=== PATIENT | female | born 1990 | race Caucasian/White ===

== ENCOUNTER 2017-03-08 11:48 | Observation (INO) | payer BC, OTHER ==
[2017-03-08 11:55] VITALS: BMI 27.1
--- NOTE | 2017-03-08 12:01 | PDOC ---
Attending Attestation - Resident Resident Name: TylerMary - HPI HPI: 03/12/17 00:13 Pt presents to the ED complaining of syncope. Patient has a history of multiple UTIs and incompletely self treated with antibiotics that she had at home. Seen in urgent care today who advised her to come to the ED because they found her to have a UTI and a WBC Count of 18. - Physicial Exam PE: 03/12/17 00:34 Agree with resident's exam. Patient is well appearing and in no acute distress. - Medical Decision Making 03/12/17 00:37 Pt presents to the ED with syncope and apparent UTI. Concern for possible emerging sepsis. Will give IV hydration, check labs, treat with IV antibiotics and admit to medicine for possible emerging sepsis.
--- NOTE | 2017-03-08 12:01 | PDOC ---
History of Present Illness - General Chief Complaint: Urinary Problem Stated Complaint: URINARY PROBLEM Time Seen by Provider: 03/08/17 12:00 History Source: Patient - History of Present Illness Initial Comments: 03/08/17 12:18 CC: "Urgent Care said I should be worried about sepsis." Patient is a 26 y.o. female with a PMH of ileal resection (2/2 to SB abscess) who presents today c/o a syncopal episode yesterday evening as well possible UTI. Patient notes she woke up @ 4 a.m. to get a glass of water and syncopized. Her last memory is walking down the hallway to get a glass of water and then waking up on her kitchen floor. Patient is uncertain if she hit her head, but does c/ o of intermittent blurry vision. Patient denies any vomiting, confusion or pre- syncopal diaphoresis, chest pain or shortness of breath. Patient further notes a h/o repeated UTI's for which she often self-medicates with unfinished antibiotic regimens. Most recently she had a UTI 10 days previous for which she took 3 doses of Macrobid. Patient notes she did feel some urgency last night so she took one Macrobid (dose unknown). Patient denies any dysuria or hematuria but notes subjective fever. Patient was evaluated at Urgent Care this morning and provides paperwork that shows a CBC significant for leukocytosis (18), and a urinalysis showing 1+ blood and Nitrite (+). Surgical: Ileal resection Social: (+) nicotine 5-6 cigarettes daily; (+) alcohol 4-5 drinks monthly; (-) marijuana/cocaine/heroin Allergies: Reglan; Patient notes she is opiod sensitive and has a h/o of Dilaudid dependence/withdrawal PMD: Dr. Pat Castro Past History - Past Medical History Allergies/Adverse Reactions: Allergies Allergy/AdvReac Type Severity Reaction Status Date / Time Fish Containing Products Allergy Verified 03/08/17 11:49 metoclopramide HCl Allergy Verified 03/08/17 11:49 [From Reglan] Home Medications: Ambulatory Orders NK [No Known Home Medication] 03/08/17 GI Disorders: Yes (Diverticulitis) Other medical history: Reoccurent UTI - Surgical History Abdominal Surgery: Yes (Partial ileocolonectomy) - Immunization History Immunization Up to Date: Yes - Suicide/Smoking/Psychosocial Hx Smoking History: Current every day smoker Have you smoked in the past 12 months: No Number of Cigarettes Smoked Daily: 10 Information on smoking cessation initiated: No Hx Alcohol Use: No Drug/Substance Use Hx: No Substance Use Type: None Review of Systems - Review of Systems Constitutional: Yes: Chills, Fever HEENTM: Yes: Blurred Vision Respiratory: No: Shortness of Breath, Wheezing Cardiac (ROS): Yes: Syncope. No: Chest Pain, Irregular Heart Rate, Lightheadedness, Palpitations ABD/GI: No: Constipated, Diarrhea, Nausea, Vomiting : Yes: Urgency. No: Burning, Dysuria Neurological: Yes: Headache. No: Unsteady Gait All Other Systems: Reviewed and Negative *Physical Exam - Vital Signs Last Vital Signs Temp Pulse Resp BP Pulse Ox 99.7 F H 93 H 15 126/68 96 03/08/17 11:50 03/08/17 11:50 03/08/17 11:50 03/08/17 11:50 03/08/17 11:50 - Physical Exam General Appearance: Yes: Nourished, Obese HEENT: positive: EOMI, DORENE Neck: positive: Trachea midline, Supple Respiratory/Chest: positive: Lungs Clear, Normal Breath Sounds Cardiovascular: positive: S1, S2, Tachycardia Gastrointestinal/Abdominal: positive: Soft. negative: Tender, Guarding, Rebound Musculoskeletal: negative: Normal Inspection, CVA Tenderness Integumentary: positive: Normal Color, Dry, Warm Neurologic: positive: senior software quality engineer II-XII NML intact, Fully Oriented, Alert, Motor Strength 5/5, Finger to Nose ED Treatment Course - LABORATORY CBC & Chemistry Diagram: 03/08/17 12:40 03/08/17 12:40 Medical Decision Making - Medical Decision Making 03/08/17 12:41 Patient is a 26 y.o. female who presents following syncopal episode as well labs from urgent care that show SIRS 3/4 (Temp. 99, HR 109, WBC 18) PLAN: 1. Lactate 2. CBC/CMP 3. UA, UC, Urine Culture 4. EKG 03/08/17 13:32 Dr. Castro called ED, requests blood cultures, 1 gram Ceftriaxone and admission to observation. ED labs significant for Leukocytosis (20) and patient remains febrile (99.7), patient admitted under Dr. Castro. *DC/Admit/Observation/Transfer Diagnosis at time of Disposition: Urinary tract infection - Discharge Dispostion Condition at time of disposition: Good Admit: Yes
[2017-03-08] MEDS ORDERED: SODIUM CHLORIDE 1,000 ML IV STA (12:25)
[2017-03-08 12:53] LABS: BASOPHIL 0.3 % (0-2.0); EOSINOPHIL 0.3 % (0-4.5); MCHC 33.4 g/dl (32.0-36.0); MEAN PLT VOLUME 7.4 fl (7.5-11.1); NEUTROPHILS 94.7 % (42.8-82.8); PLATELET COUNT 237 K/MM3 (134-434); RDW 12.6 % (11.6-15.6)
[2017-03-08 13:22] LABS: ALBUMIN 4.1 g/dl (3.4-5.0); ANION GAP 10 (8-16); BILIRUBIN,TOTAL 1.6 mg/dL (0.2-1.0); CALCIUM 9.2 mg/dL (8.5-10.1); CO2 24 mmol/L (21-32); CREATININE 0.6 mg/dL (0.55-1.02); GLUCOSE,RANDOM 98 mg/dL (74-106); SGPT/ALT 15 U/L (12-78)
[2017-03-08 13:23] LABS: ALK PHOS 59 U/L (45-117); TOT PROT 6.9 g/dl (6.4-8.2)
[2017-03-08 13:24] LABS: SGOT/AST 13 U/L (15-37)
[2017-03-08] MEDS ORDERED: CEFTRIAXONE 1 GM in DEXTROSE 5%-WATER - 50 ML IVPB ONE (13:35)
[2017-03-08] MEDS ORDERED: CEFTRIAXONE 50 ML ONE (13:46)
[2017-03-08 13:52] LABS: URINE APPEARANCE CLEAR; URINE BILIRUBIN NEGATIVE (NEGATIVE); URINE BLOOD 2+ (NEGATIVE); URINE COLOR STRAW; URINE GLUCOSE (UA) NEGATIVE (NEGATIVE); URINE KETONE TRACE (NEGATIVE); URINE NITRITE NEGATIVE (NEGATIVE); URINE PROTEIN NEGATIVE (NEGATIVE); URINE UROBILINOGEN NEGATIVE mg/dL (0.2-1.0)
[2017-03-08 13:55] LABS: URINE LEUK ESTERASE 3+ (NEGATIVE)
[2017-03-08 13:57] LABS: URINE BACTERIA RARE /hpf (NONE SEEN); URINE RBC 4 /hpf (0-3); URINE WBC 16 /hpf (3-5); YEAST RARE
[2017-03-08] MEDS ORDERED: ACETAMINOPHEN 325 MG TABLET (FP) PO PRN (16:01)
--- NOTE | 2017-03-08 16:09 | HP ---
Admitting History and Physical - Primary Care Physician PCP: Isi Castro - Admission Chief Complaint: malaise History of Present Illness: Has had recurrent UTI in past couple months, never completed abx courses, only couple pills here and there. Yesterday felt like she was coming down with UTI took two pills of macrobid. Woke up at night and went to the bathroom at 4.30 am passed out on the kitchen floor due to weakness?, then went back to bed. Woke up this am still feeling very weak, went to [place] [id number] and was sent to er. History Source: Patient Limitations to Obtaining History: No Limitations - Past Medical History Gastrointestinal: Yes: Other (Crohn's disease in past) Reproductive: Yes: Polycystic Ovary Syndrome - Past Surgical History Additional Past Surgical History: partial ileal colectomy for perforated bowel 2010 - Smoking History Smoking history: Current every day smoker Have you smoked in the past 12 months: No Aproximately how many cigarettes per day: 10 - Alcohol/Substance Use Hx Alcohol Use: Yes - Social History Usual Living Arrangement: Yes: Alone ADL: Independent History of Recent Travel: No Home Medications - Allergies Allergies/Adverse Reactions: Allergies Allergy/AdvReac Type Severity Reaction Status Date / Time Fish Containing Products Allergy Verified 03/08/17 11:49 metoclopramide HCl Allergy Verified 03/08/17 11:49 [From Reglan] - Home Medications Home Medications: Ambulatory Orders NK [No Known Home Medication] 03/08/17 Family Disease History - Family Disease History Family Disease History: CA: Father (seminoma), Mother (colon) Review of Systems - Review of Systems Constitutional: reports: Chills, Loss of Appetite Eyes: reports: No Symptoms HENT: reports: No Symptoms Neck: reports: No Symptoms Cardiovascular: reports: No Symptoms Respiratory: reports: Cough (dry) Gastrointestinal: reports: No Symptoms Genitourinary: reports: Dysuria, Flank Pain Musculoskeletal: reports: No Symptoms Integumentary: reports: No Symptoms Neurological: reports: No Symptoms Endocrine: reports: No Symptoms Hematology/Lymphatic: reports: No Symptoms Psychiatric: reports: No Symptoms Physical Examination Vital Signs: Vital Signs Temperature 98.4 F 03/08/17 14:09 Pulse Rate 72 03/08/17 14:09 Respiratory Rate 18 03/08/17 14:09 Blood Pressure 98/48 03/08/17 14:09 O2 Sat by Pulse Oximetry (%) 100 03/08/17 14:09 Constitutional: Yes: Well Nourished, Calm Eyes: Yes: EOM Intact HENT: Yes: Normocephalic Neck: Yes: Trachea Midline Cardiovascular: Yes: Regular Rate and Rhythm Respiratory: Yes: CTA Bilaterally Gastrointestinal: Yes: Normal Bowel Sounds, Soft. No: Tenderness, Epigastrium, Tenderness, Rebound (mild bilateral CVA tenderness) Renal/: Yes: WNL Musculoskeletal: Yes: WNL Extremities: Yes: WNL Edema: No Peripheral Pulses WNL: Yes Neurological: Yes: WNL ...Motor Strength: WNL Labs: Laboratory Results - last 24 hr 03/08/17 03/08/17 03/08/17 12:40 12:40 12:40 WBC 20.0 H RBC 4.68 Hgb 13.6 Hct 40.7 MCV 87.0 MCH 29.0 MCHC 33.4 RDW 12.6 Plt Count 237 MPV 7.4 L Neutrophils % 94.7 H Lymphocytes % 1.2 L Monocytes % 3.5 L Eosinophils % 0.3 Basophils % 0.3 Sodium 137 Potassium 4.1 Chloride 103 Carbon Dioxide 24 Anion Gap 10 BUN 8 Creatinine 0.6 Creat Clearance w eGFR > 60 Random Glucose 98 Lactic Acid 0.9 Calcium 9.2 Total Bilirubin 1.6 H AST 13 L ALT 15 Alkaline Phosphatase 59 Total Protein 6.9 Albumin 4.1 Urine Color Urine Appearance Urine pH Urine Protein Urine Glucose (UA) Urine Ketones Urine Blood Urine Nitrite Urine Bilirubin Urine Urobilinogen Urine RBC Urine WBC Ur Epithelial Cells Urine Bacteria Urine Yeast Urine HCG, Qual 03/08/17 03/08/17 13:31 13:31 WBC RBC Hgb Hct MCV MCH MCHC RDW Plt Count MPV Neutrophils % Lymphocytes % Monocytes % Eosinophils % Basophils % Sodium Potassium Chloride Carbon Dioxide Anion Gap BUN Creatinine Creat Clearance w eGFR Random Glucose Lactic Acid Calcium Total Bilirubin AST ALT Alkaline Phosphatase Total Protein Albumin Urine Color Straw Urine Appearance Clear Urine pH 6.0 Urine Protein Negative Urine Glucose (UA) Negative Urine Ketones Trace H Urine Blood 2+ H Urine Nitrite Negative Urine Bilirubin Negative Urine Urobilinogen Negative Urine RBC 4 Urine WBC 16 Ur Epithelial Cells Rare Urine Bacteria Rare Urine Yeast Rare Urine HCG, Qual Negative Imaging - Results Chest X-ray: Other (has had negative chest xray at urgent care this am) Problem List - Problems (1) UTI (urinary tract infection) Code(s): N39.0 - URINARY TRACT INFECTION, SITE NOT SPECIFIED Qualifiers: Encounter type: initial encounter Assessment/Plan iv abx f/up cultures iv hydration
[2017-03-08] MEDS: POTASSIUM CHLORIDE 10 MEQ in SODIUM CHLORIDE 0.45% 1,000 ML IVPB SCH (17:28)
[2017-03-09] MEDS: POTASSIUM CHLORIDE 10 MEQ in SODIUM CHLORIDE 0.45% 1,000 ML IVPB SCH (06:18)
[2017-03-09 08:24] LABS: BASOPHIL 0.1 % (0-2.0); EOSINOPHIL 4.6 % (0-4.5); MCH 29.4 pg (25.7-33.7); MCHC 33.9 g/dl (32.0-36.0); MEAN CELL VOLUME 86.9 fl (80-96); MEAN PLT VOLUME 7.5 fl (7.5-11.1); NEUTROPHILS 74.2 % (42.8-82.8); PLATELET COUNT 209 K/MM3 (134-434); RDW 12.9 % (11.6-15.6); WHITE BLOOD COUNT 9.4 K/mm3 (4.0-10.0)
[2017-03-09 08:37] LABS: ALBUMIN 3.2 g/dl (3.4-5.0); ANION GAP 7 (8-16); CALCIUM 8.2 mg/dL (8.5-10.1); CO2 26 mmol/L (21-32); GLUCOSE,RANDOM 87 mg/dL (74-106)
[2017-03-09 08:43] LABS: ALK PHOS 49 U/L (45-117); BILIRUBIN,TOTAL 1.2 mg/dL (0.2-1.0); CREATININE 0.7 mg/dL (0.55-1.02); SGOT/AST 8 U/L (15-37); SGPT/ALT 16 U/L (12-78); TOT PROT 5.8 g/dl (6.4-8.2)
[2017-03-09] MEDS ORDERED: cefTRIAXone SODIUM 1 GM VIAL ONE (09:40)
[2017-03-09] MEDS ORDERED: DEXTROSE 5%-WATER - 50 ML IVPB ONE (09:40)
--- NOTE | 2017-03-09 09:41 | EKG ---
Test Reason : Blood Pressure : / mmHG Vent. Rate : 071 BPM Atrial Rate : 071 BPM P-R Int : 152 ms QRS Dur : 084 ms QT Int : 378 ms P-R-T Axes : 028 047 040 degrees QTc Int : 410 ms NORMAL SINUS RHYTHM WITH SINUS ARRHYTHMIA POSSIBLE EARLY REPOLARIZATION CHANGES BORDERLINE ECG NO PREVIOUS ECGS AVAILABLE Confirmed by JUAN OSUNA, DELIA ([id number]) on 03/09/2017 9:40:48 AM Referred By: Confirmed By:DELIA MARTINEZ MD
[2017-03-09] MEDS ORDERED: CEFTRIAXONE 1 GM in DEXTROSE 5%-WATER - 50 ML IVPB SCH (10:00)
[2017-03-09] MEDS ORDERED: PNEUMOC 13-VAL CONJ-DIP CRM/PF 0.5 ML DISP.SYRIN IM ONE (10:07)
--- NOTE | 2017-03-09 11:05 | PN ---
Progress Note (short form) - Note Progress Note: Tmax 102 yesterday CBC, BMP 03/09/17 06:45 03/09/17 06:45 Vital Signs Period Temp Pulse Resp BP Sys/Ortez Pulse Ox Last 24 Hr 98.4 F-100.9 F 72-93 15-18 94-126/48-77 96-100 S1S2 RRR Lungs cta Abd mild pelvic and LLQ tenderness no edema feels better, good appetite last BM 3 days ago UCx no growth Imp fever ?partially treated UTI ?viral check pelvic and abd US in view of elevated Tbi and pelvic pain stop iv fluids got ceftriaxone today will obatin ID input in terms of abx use dc planning in pm if US are negative and remains afebrile Problem List - Problems (1) UTI (urinary tract infection) Code(s): N39.0 - URINARY TRACT INFECTION, SITE NOT SPECIFIED Qualifiers: Encounter type: initial encounter
[2017-03-09] MEDS ORDERED: PNEUMOCOCCAL 23 VACCINE 0.5 ML VIAL IM ONE (13:00)
--- NOTE | 2017-03-09 15:05 | PN ---
Progress Note (short form) - Note Progress Note: ID consult dictated imp/reccd 26 year old female history recurrent UTI, started having dysuria Wednesday night, took Macrobid, woke up at 4 am had dry cough,and went to kitchen to get some water, passed out and woke up on the floor- had fever later in the day and went to [facility] where she was evaluated had low grade fever 99.8 and wbc of 18k, ua positive for LE Tmax 102.5 in hospital with bp 94/61 sent to ed and admitted now feels well wbc now normal lfts normalizing syncope UTI agree with rocephin with switch to po keflex 500 bid when ready for discharge agree with sono RUQ and pelvis, renal sonogram normal will d/w PMD Problem List - Problems (1) UTI (urinary tract infection) Code(s): N39.0 - URINARY TRACT INFECTION, SITE NOT SPECIFIED Qualifiers: Encounter type: initial encounter
--- NOTE | 2017-03-09 16:35 | CONS ---
INFECTIOUS DISEASE CONSULTATION DATE OF CONSULTATION: DATE OF DICTATION: 03/09/2017 REQUESTING PHYSICIAN: Isi Castro MD HISTORY OF PRESENT ILLNESS: This is a 26-year-old woman with past medical history of Crohn disease in the past. She has had a history of recurrent UTIs. On Wednesday, she felt like she was getting a urinary tract infection with some frequency and urgency. She took Macrobid. She woke up later that night with a dry cough. She was coughing. She went to her kitchen (she lives alone) to get some water. On the way back from her kitchen, she passed out and then woke up and went back to bed. When she woke up in the morning, she felt feverish. She called her mother. They went to the [facility] where she was found to have a white count of 18,000, a UA with positive leukocyte esterase, and a temperature of 99.7. She was admitted to the hospital for observation. She had cultures sent. She was started on ceftriaxone for possible UTI. I am asked to see her for further evaluation. Overnight, she has had fever of 102.5 with a systolic blood pressure as low as 94/61. Currently, she is feeling much better and has no complaints. She had a renal sonogram after admission, that is unremarkable. PAST MEDICAL HISTORY: Notable for a history of Crohn disease in the past. There is a history of polycystic ovaries. She has had a partial ileal colectomy for perforated bowel in 2010. ALLERGIES: She is allergic to FISH-CONTAINING PRODUCTS and REGLAN. MEDICATIONS: She takes no medicines. SOCIAL HISTORY: She lives alone. 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 There is no history of recent travel. She is an active cigarette smoker and drinks alcohol socially. FAMILY HISTORY: Notable for colon cancer in her mother, her father. REVIEW OF SYSTEMS: She is feeling much better. Her chills have resolved. She is hungry but is waiting for an ultrasound. She no longer has any back pain or flank pain or low back pain, and she feels well. PHYSICAL EXAMINATION: Vital Signs: Her temperature is 97.7. T-max was 102.5. Pulse of 66, blood pressure 114/67, respiratory rate is 20. HEENT: She is normocephalic. Her eyes are anicteric. Neck: Supple. Lungs: Clear to auscultation. Heart: Regular rate and rhythm. Abdomen: Soft, nontender. She has no CVA tenderness. She has no suprapubic pain. Extremities: Without edema. DIAGNOSTIC DATA: Urinalysis had 16 white cells. test negative. White count on admission was 20,000; this morning, is 9.4. Chemistries revealed a total bilirubin of 1.6 yesterday; this morning, 1.2. Blood cultures are negative. Influenza screen is negative, and urine culture has no growth. In summary, this is a 26-year-old woman with syncope and urinary tract infection. Suspect syncope most likely on the basis of the sepsis as she developed an elevated white count, high-grade fever, and hypotension after admission to the hospital. Perhaps, she had a vagal episode as well with cough. Would agree with the Rocephin. Would switch to oral Keflex 500 b.i.d. when ready for discharge. Would agree with the sonogram of the right upper quadrant and pelvis. I suspect her urine culture is negative because she was pretreated with Macrobid. Spoke with Dr. Castro regarding the patient's care. Benito [id number]
[2017-03-09 18:10] VITALS: BP 107/67; PULSE 80; TEMP 99.1
--- NOTE | 2017-03-10 08:59 | DS ---
Physical Examination Vital Signs: Vital Signs Temperature 99.1 F 03/09/17 18:00 Pulse Rate 80 03/09/17 18:00 Respiratory Rate 20 03/09/17 18:00 Blood Pressure 107/67 03/09/17 18:00 O2 Sat by Pulse Oximetry (%) 94 L 03/09/17 14:00 Constitutional: Yes: No Distress, Calm Eyes: Yes: WNL HENT: Yes: Atraumatic, Normocephalic Neck: Yes: Trachea Midline Cardiovascular: Yes: Regular Rate and Rhythm Respiratory: Yes: CTA Bilaterally Gastrointestinal: Yes: Normal Bowel Sounds, Soft Extremities: Yes: WNL Edema: No Labs: CBC, BMP 03/09/17 06:45 03/09/17 06:45 Discharge Summary Reason For Visit: UTI Current Active Problems UTI (urinary tract infection) (Acute) Hospital Course: admitted after syncopal-likely vasovagal episode and leukocytosis/fever/ hypotension blood cx, urine cx, pelvic and renal US unremarkable, feel much better after ceftriaxone and ivf. medically stable to go home with close outpt f/up-has appt. with me in 3 days Condition: Good - Instructions Diet, Activity, Other Instructions: dr. Castro Wednesday at 10 am Disposition: HOME - Home Medications Comprehensive Discharge Medication List: Ambulatory Orders Cephalexin [Keflex] 500 mg PO BID #14 capsule 03/09/17
== END 2017-03-09 18:37 | disposition home or self-care (01) ==
LOC: JER 11:48 → JERBED 13:34 → J5S 14:40
PROVIDERS: ADMIT Internal Medicine; ATTEND Internal Medicine
PROC: 3E03329 Introduction of Other Anti-infective into Peripheral Vein, Percutaneous Approach (ICD-10-PCS; principal; 2017-03-08)
PROC: 3E0337Z Introduction of Electrolytic and Water Balance Substance into Peripheral Vein, Percutaneous Approach (ICD-10-PCS; 2017-03-08)
PROC: 3E0234Z Introduction of Serum, Toxoid and Vaccine into Muscle, Percutaneous Approach (ICD-10-PCS; 2017-03-08)
DX: N39.0 Urinary tract infection, site not specified (principal); R55 Syncope and collapse; F17.210 Nicotine dependence, cigarettes, uncomplicated; Z91.013 Allergy to seafood; Z88.8 Allergy status to other drugs, medicaments and biological substances; Z87.440 Personal history of urinary (tract) infections
CPT/HCPCS: 36415; 76700-TC; 76775-TC; 76856-TC; 80053; 81003; 81015; 83605; 84703; 85025; 87040; 87086; 87804; 90732; 93005; 93010; 99285-25; G0009; G0378

== ENCOUNTER 2020-05-31 23:04 | Emergency (ER) | payer BC, OTHER ==
[2020-05-31 23:25] VITALS: BMI 26.6
[2020-06-01 01:08] LABS: BASO % 0.4 % (0-2.0); EOS % 1.9 % (0-4.5); HEMOGLOBIN 12.4 GM/dL (10.7-15.3); MCH 29.6 pg (25.7-33.7); MCHC 34.3 g/dl (32.0-36.0); MEAN CELL VOLUME 86.2 fl (80-96); MEAN PLT VOLUME 7.3 fl (7.5-11.1); MONO % 9.5 % (3.8-10.2); NEUT % 53.2 % (42.8-82.8); PLATELET COUNT 269 K/MM3 (134-434); RBC 4.17 M/mm3 (3.60-5.2); RDW 13.4 % (11.6-15.6)
[2020-06-01 06:33] VITALS: TEMP 97.9
== END 2020-06-01 06:58 | disposition home or self-care (01) ==
LOC: JER 23:04
DX: M25.561 Pain in right knee (principal)
CPT/HCPCS: 36415; 71275-TC; 73562-TC-LT-FY; 73562-TC-RT-FY; 73590-TC-LT-FY; 73590-TC-RT-FY; 73610-TC-LT-FY; 73610-TC-RT-FY; 73630-TC-LT; 73630-TC-RT-FY; 82962; 84703; 85025; 85379; 93005; 93010; 99285-25; Q9967

== ENCOUNTER 2021-04-29 04:26 | Day surgery (SDC) | payer BC, OTHER ==
[2021-04-25 15:03] VITALS: BMI 26.7
[2021-04-29 10:09] VITALS: BP 107/58; PULSE 67; TEMP 97.6
[2021-05-02 15:08] LABS: ATYPICAL pANCA <1:20 titer (Neg:<1:20)
== END 2021-04-29 10:24 | disposition home or self-care (01) ==
LOC: JASU-ENDO 04:26
PROVIDERS: ATTEND Internal Medicine Gastroenterology
PROC: 0DBB8ZX Excision of Ileum, Via Natural or Artificial Opening Endoscopic, Diagnostic (ICD-10-PCS; principal; 2021-04-29 08:45)
DX: Z12.11 Encounter for screening for malignant neoplasm of colon (principal); K64.8 Other hemorrhoids; Z98.0 Intestinal bypass and anastomosis status; Z80.0 Family history of malignant neoplasm of digestive organs
CPT/HCPCS: 36415; 81025; 86256; 86671; 88305-TC